=== PATIENT | female | born 1995 | race Caucasian/White ===

== ENCOUNTER 2016-12-18 23:58 | Emergency (ER) | payer OTHER | END 2016-12-19 04:59 | disposition home or self-care (01) | LOC: ER 23:58 | DX: S09.90XA Unspecified injury of head, initial encounter (principal); Z88.8 Allergy status to other drugs, medicaments and biological substances; V49.9XXA Car occupant (driver) (passenger) injured in unspecified traffic accident, initial encounter | CPT/HCPCS: 70450; 70486; 71020; 99284; A9270-GY ==